=== PATIENT | female | born 1995 | race Caucasian/White ===

== ENCOUNTER 2019-04-10 23:37 | Emergency (ER) | payer OTHER ==
[2019-04-11] MEDS ORDERED: Ondansetron INJ* 2 MG/ML VIAL IV ONE ×2 (00:05→00:43)
[2019-04-11] MEDS ORDERED: NS 0.9% 1000 ML** 1,000 ML IV ONE (00:05)
--- NOTE | 2019-04-11 00:07 | ED ---
Substance Abuse/Use - HPI Summary HPI Summary: Patient states she drank 3 alcohol beverages and now complains of dizziness, nausea and hard time breathing. Patient states she drinks 3 vodka drinks every 4 hours on an empty stomach. Patient in no apparent respiratory distress. Medical history is PCO as. Denies any other pain injury or symptoms. - History Of Current Complaint Chief Complaint: EDShortnessOfBreath Stated Complaint: DIFF BREATHING/ETOH PER EMS Time Seen by Provider: 04/10/19 23:52 Hx Obtained From: Patient Onset/Duration of Drug/ETOH Abuse: Hours Overdose Characteristics: Oral Severity Initially: Moderate Severity Currently: Moderate Character: Anxious Aggravating Factor(s): Nothing Alleviating Factor(s): Nothing Associated Signs And Symptoms: Nausea - Allergies/Home Medications Allergies/Adverse Reactions: Allergies Allergy/AdvReac Type Severity Reaction Status Date / Time No Known Allergies Allergy Verified 04/10/19 23:48 PMH/Surg Hx/FS Hx/Imm Hx Endocrine/Hematology History: Denies: Hx Anticoagulant Therapy Cardiovascular History: Denies: Hx Pacemaker/ICD History: Denies: Hx Dialysis Sensory History: Denies: Hx Eye Prosthesis Opthamlomology History: Denies: Hx Legally Blind EENT History: Denies: Hx Deafness Neurological History: Denies: Hx Dementia Infectious Disease History: No Infectious Disease History: Denies: Traveled Outside the [place] in Last 30 Days - Family History Known Family History: Positive: Non-Contributory - Social History Alcohol Use: Occasionally Substance Use Type: Reports: None Smoking Status (MU): Never Smoked Tobacco Review of Systems Constitutional: Negative Eyes: Negative ENT: Negative Cardiovascular: Negative Respiratory: Negative Gastrointestinal: Negative Positive: Nausea Genitourinary: Negative Musculoskeletal: Negative Skin: Negative Neurological: Negative Positive: Anxious All Other Systems Reviewed And Are Negative: Yes Physical Exam Triage Information Reviewed: Yes Vital Signs On Initial Exam: Initial Vitals Temp Pulse Resp BP Pulse Ox 97.9 F 90 24 111/85 99 04/10/19 23:42 04/10/19 23:42 04/10/19 23:42 04/10/19 23:42 04/10/19 23:42 Vital Signs Reviewed: Yes Appearance: Positive: Well-Appearing Skin: Positive: Warm Head/Face: Positive: Normal Head/Face Inspection Eyes: Positive: Normal Neck: Positive: Supple Respiratory/Lung Sounds: Positive: Clear to Auscultation Cardiovascular: Positive: Normal Abdomen Description: Positive: Nontender Musculoskeletal: Positive: Normal Neurological: Positive: Normal Psychiatric: Positive: Normal AVPU Assessment: Alert - [place] Coma Scale Best Eye Response: 4 - Spontaneous Best Motor Response: 6 - Obeys Commands Best Verbal Response: 5 - Oriented Coma Scale Total: 15 Procedures - Sedation Patient Received Moderate/Deep Sedation with Procedure: No Diagnostics - Vital Signs Vital Signs Temp Pulse Resp BP Pulse Ox 04/10/19 23:42 97.9 F 90 24 111/85 99 - Laboratory Lab Statement: Any lab studies that have been ordered have been reviewed, and results considered in the medical decision making process. Course/Dx - Course Course Of Treatment: Patient states she drank 3 alcohol beverages and now complains of dizziness, nausea and hard time breathing. Patient states she drinks 3 vodka drinks every 4 hours on an empty stomach. Patient in no apparent respiratory distress. Medical history is PCO as. Denies any other pain injury or symptoms. Vital signs within normal limits. 2 L normal saline and 4 mg of Zofran resolved symptoms. Patient discharged into custody of sober friend. - Diagnoses Provider Diagnoses: Anxiety, Alcohol intoxication Discharge ED - Sign-Out/Discharge Documenting (check all that apply): Patient Departure - Discharge Plan Condition: Stable Disposition: HOME Patient Education Materials: Alcohol Intoxication (ED) Referrals: No Primary Care Phys,NOPCP [Primary Care Provider] - Additional Instructions: Drink fluids to maintain hydration. - Billing Disposition and Condition Condition: STABLE Disposition: Home
[2019-04-11 01:28] VITALS: BP 113/77
== END 2019-04-11 01:31 | disposition home or self-care (01) ==
LOC: ED 23:37
DX: F41.9 Anxiety disorder, unspecified (principal); F10.129 Alcohol abuse with intoxication, unspecified; R42 Dizziness and giddiness; R11.0 Nausea
CPT/HCPCS: 36415; 80320; 96361; 96374; 96376; 99282; G0480; J2405